=== PATIENT | male | born 1945 | race Hispanic/Latino ===

== ENCOUNTER 2019-08-07 05:02 | Emergency (ER) | payer MEDICARE ==
[~2019-08-07] VITALS: Ht 172.7 cm; Wt 83.0 kg
[~2019-08-07 05:02] MED LIST: AMLODIPINE10 MG PO; AUGMENTIN875TAB OR; FLORASTOR250 M1 PO; GLIMEPIRIDE4 MG PO; GLYBURIDE2.5 MG PO; HYDROCHLOROT25 MG PO; LEVAQUIN750 MG PO; LISINOPRIL2.5 MG PO; LOVASTATIN20 MG PO; MEDDOSEPAK PO; METFORMIN HCL500 M1 PO; METFORMIN1000 MG PO; METFORMIN500 MG PO; NYSTATIN100000 M1 PO; PRAVASTATIN20 MG PO; TESSALON200 MG PO
[2019-08-07 05:18] VITALS: BP 164/94
[2019-08-07 06:13] LABS: HEMATOCRIT 47.5 % (39.0-50.0); HEMOGLOBIN 15.7 g/dl (14.0-18.0); IMMATURE GRANULOCYTES 0.4 % (0.0-5.0); MEAN CELL VOLUME 87.6 fL CALC (80.0-100.0); MEAN CORPUSCULAR HGB CONC 33.1 g/L CALC (32.0-36.0); NEUT# 17.52 thou/uL (1.82-7.42); RED BLOOD COUNT 5.42 mill/uL (4.70-6.10); RED CELL DISTRI WIDTH 12.4 % (11.5-15.5)
[2019-08-07 06:19] LABS: URINE BILIRUBIN - DIPSTICK NEGATIVE (NEGATIVE); URINE BLOOD DIPSTICK TRACE-INTACT (NEGATIVE); URINE COLOR YELLOW; URINE GLUCOSE - DIPSTICK NEGATIVE (NEGATIVE); URINE KETONE NEGATIVE (NEGATIVE); URINE NITRITE - DIPSTICK NEGATIVE (Negative); URINE PH 8.5 (4.5-8.0); URINE PROTEIN - DIPSTICK 100 mg/dL (NEG-TRACE); URINE SPECIFIC GRAVITY 1.015; URINE UROBILINOGEN - DIPSTICK 0.2 E.U./dL (0.2)
[2019-08-07 06:19] LABS: ALBUMIN 4.3 g/dL (3.2-5.0); ALKALINE PHOSPHATASE 99 u/l (38-126); ANION GAP 13 (6-22 (CALC)); BUN 12 mg/dL (8-23); BUN/CREATININE RATIO 14 (12-20 (CALC)); CARBON DIOXIDE 30 mmol/l (22-30); CHLORIDE 97 mmol/l (95-108); CREATININE 0.9 mg/dL (0.7-1.3); GFR > 60 ML/MIN (>=60 (CALC)); GFR FOR AFR.AMER. > 60 ML/MIN (>=60 (CALC)); POTASSIUM 4.5 mmol/l (3.5-5.1); SGOT/AST 18 u/l (19-48); SODIUM 137 mmol/l (137-146); TOTAL PROTEIN 7.6 g/dL (6.3-8.2)
[2019-08-07 06:28] LABS: URINE EPITHELIAL CELLS FEW EPI/hpf (0-FEW); URINE LEUK ESTERASE NEGATIVE (NEGATIVE)
[2019-08-07 06:29] LABS: URINE BACTERIA FEW hpf; URINE MUCUS FEW hpf (NONE-FEW)
[2019-08-07 06:31] LABS: MYOGLOBIN 40 ng/mL (0 - 121)
[2019-08-07 06:36] LABS: AMYLASE 2069 u/l (30-110); BILIRUBIN, TOTAL 1.2 mg/dL (0.0-1.4)
[2019-08-07 09:25] LABS: LIPASE 22654 u/l (23-300)
[2019-08-07] MEDS ORDERED: NORVASC5 M1 PO (09:59)
[2019-08-07] MEDS ORDERED: ENTRESTO 49-511 TAB PO (10:00)
[2019-08-07] MEDS ORDERED: VENTOLIN HFA IN (10:01)
[2019-08-07] MEDS ORDERED: METOPROL TAR100 MG PO (10:02)
[2019-08-07] MEDS ORDERED: LORATADINE10 M1 PO (10:03)
[2019-08-07] MEDS ORDERED: ASPIRIN81 MG PO (10:03)
== END 2019-08-07 10:24 | disposition short-term general hospital (02) ==
LOC: ED 05:02
PROVIDERS: Emergency Medicine
DX: R10.13 Epigastric pain (principal); R16.0 Hepatomegaly, not elsewhere classified; K86.9 Disease of pancreas, unspecified; R91.8 Other nonspecific abnormal finding of lung field; D72.829 Elevated white blood cell count, unspecified; E11.9 Type 2 diabetes mellitus without complications; Z79.84 Long term (current) use of oral hypoglycemic drugs
CPT/HCPCS: Q9967; S0164

== ENCOUNTER 2024-10-05 01:03 | Inpatient (IN) | payer MEDICARE ==
[~2024-10-05] VITALS: Ht 172.7 cm; Wt 73.4 kg
[2024-10-05] VITALS (17 sets, daily range): BP systolic 99–165; BP diastolic 49–77
[~2024-10-05 01:03] MED LIST changes: +ASPIRIN81 MG PO; +ENTRESTO 49-511 TAB PO; +LORATADINE10 M1 PO; +METOPROL TAR100 MG PO; +NORVASC5 M1 PO; +VENTOLIN HFA IN
[2024-10-05] MEDS ORDERED: ALBUTEROL SULFATE 2.5 MG VIAL NEB ONE (01:25)
[2024-10-05] MEDS ORDERED: methylPREDNISolone SODIUM SUCC 125 MG/2 ML SDV IV ONE (01:25)
[2024-10-05 01:34] LABS: BASO% 0.4 % (0-3); EOS% 4.8 % (0-8); HEMATOCRIT 40.8 % (39.0-50.0); IMMATURE GRANULOCYTES 0.2 % (0.0-5.0); LYMPH% 22.2 % (15-41); MEAN CELL VOLUME 91.5 fL CALC (80.0-100.0); MEAN CORPUSCULAR HGB 29.1 pG CALC (26.0-32.0); MEAN CORPUSCULAR HGB CONC 31.9 g/dL CAL (32.0-36.0); MONO% 8.5 % (2-13); NEUT# 8.02 thou/uL (1.82-7.42); NEUT% 63.9 % (42-76); RED BLOOD COUNT 4.46 mill/uL (4.70-6.10); RED CELL DISTRI WIDTH 12.2 % (11.5-15.5)
[2024-10-05 01:44] LABS: ALKALINE PHOSPHATASE 87 u/l (38-126); ANION GAP 14 (6-22 (CALC)); BILIRUBIN, TOTAL 0.5 mg/dL (0.2-1.3); BUN 16 mg/dL (8-23); BUN/CREATININE RATIO 16 (12-20 (CALC)); CARBON DIOXIDE 29 mmol/l (22-30); CHLORIDE 98 mmol/l (95-108); ESTIMATED GFR 76 ML/MIN (>=90 (CALC)); POTASSIUM 4.3 mmol/l (3.5-5.1); SGOT/AST 27 u/l (19-48); SODIUM 136 mmol/l (137-146)
[2024-10-05 01:47] LABS: ALBUMIN 4.4 g/dL (3.2-5.0); TOTAL PROTEIN 7.8 g/dL (6.3-8.2)
[2024-10-05] MEDS ORDERED: cefTRIAXone SODIUM 2 GM in SODIUM CHLORIDE 0.9% 100 ML IV ONE (03:10)
[2024-10-05] MEDS ORDERED: AZITHROMYCIN 500 MG in SODIUM CHLORIDE 0.9% 250 ML IV ONE (03:10)
[2024-10-05] MEDS ORDERED: PRAVASTATIN SOD20 MG PO (04:19)
[2024-10-05] MEDS ORDERED: DIGOXIN0.125 MG PO (04:20)
[2024-10-05] MEDS ORDERED: LASIX 40 MG TAB40 MG PO (04:23)
[2024-10-05] MEDS ORDERED: METFORMIN HCL1000 MG PO (04:23)
[2024-10-05] MEDS ORDERED: GLIMEPIRIDE2 MG PO (04:24)
[2024-10-05] MEDS ORDERED: ALLERGY RE50 MCG/ACT (04:25)
[2024-10-05] MEDS ORDERED: SODIUM CHLORIDE 0.9% 500 ML IV ONE (04:45)
[2024-10-05] MEDS ORDERED: AZITHROMYCIN 500 MG/VIAL SDV IV ONE (04:45)
[2024-10-05] MEDS ORDERED: SODIUM CHLORIDE 0.9% 250 ML IV ONE (04:51)
[2024-10-05] MEDS ORDERED: ACETAMINOPHEN 325 MG/TAB PO PRN (07:35)
[2024-10-05] MEDS ORDERED: DEXTROSE 250 ML IV PRN (07:35)
[2024-10-05] MEDS ORDERED: IPRATROPIUM-Albuterol 0.5MG-2.5MG/3 ML NEB PRN (07:35)
[2024-10-05] MEDS ORDERED: FUROSEMIDE 40 MG/4 ML SDV IV SCH (09:00)
[2024-10-05] MEDS ORDERED: SODIUM CHLORIDE 0.9% 1,000 ML IV PRN (09:25)
[2024-10-05] MEDS ORDERED: INSULIN LISPRO 100 UNITS/ML ML SC SCH (11:00)
[2024-10-06] VITALS (7 sets, daily range): BP systolic 139–155; BP diastolic 52–71
[2024-10-06] MEDS ORDERED: AZITHROMYCIN 500 MG in SODIUM CHLORIDE 0.9% 500 ML IV SCH (05:00)
[2024-10-06] MEDS ORDERED: AZITHROMYCIN 500 MG in SODIUM CHLORIDE 0.9% 250 ML IV SCH (05:00)
[2024-10-06 05:25] LABS: BASO% 0.1 % (0-3); HEMATOCRIT 39.8 % (39.0-50.0); HEMOGLOBIN 12.9 g/dl (14.0-18.0); IMMATURE GRANULOCYTES 0.4 % (0.0-5.0); LYMPH% 10.8 % (15-41); MEAN CELL VOLUME 91.1 fL CALC (80.0-100.0); MEAN CORPUSCULAR HGB 29.5 pG CALC (26.0-32.0); MEAN CORPUSCULAR HGB CONC 32.4 g/dL CAL (32.0-36.0); MONO% 6.7 % (2-13); NEUT# 16.33 thou/uL (1.82-7.42); RED BLOOD COUNT 4.37 mill/uL (4.70-6.10); RED CELL DISTRI WIDTH 12.1 % (11.5-15.5)
[2024-10-06 05:46] LABS: ALBUMIN 3.6 g/dL (3.2-5.0); BILIRUBIN, TOTAL 0.6 mg/dL (0.2-1.3); MAGNESIUM 1.9 mg/dL (1.6-2.3); POTASSIUM 4.4 mmol/l (3.5-5.1); TOTAL PROTEIN 6.5 g/dL (6.3-8.2)
[2024-10-06] MEDS ORDERED: PIPERACILLIN Sodium-Tazobactam 3.375 GM in SODIUM CHLORIDE 0.9% 100 ML IV SCH (18:00)
[2024-10-07] VITALS (11 sets, daily range): BP systolic 118–185; BP diastolic 59–79
[2024-10-07 03:46] LABS: BASO% 0.3 % (0-3); EOS% 1.1 % (0-8); HEMATOCRIT 35.6 % (39.0-50.0); HEMOGLOBIN 11.4 g/dl (14.0-18.0); IMMATURE GRANULOCYTES 0.9 % (0.0-5.0); LYMPH% 17.6 % (15-41); MEAN CELL VOLUME 92.5 fL CALC (80.0-100.0); MEAN CORPUSCULAR HGB 29.6 pG CALC (26.0-32.0); MONO% 8.5 % (2-13); NEUT# 8.92 thou/uL (1.82-7.42); NEUT% 71.6 % (42-76); RED BLOOD COUNT 3.85 mill/uL (4.70-6.10); RED CELL DISTRI WIDTH 12.4 % (11.5-15.5)
[2024-10-07 03:55] LABS: ALBUMIN 3.3 g/dL (3.2-5.0); BILIRUBIN, TOTAL 0.6 mg/dL (0.2-1.3); MAGNESIUM 1.7 mg/dL (1.6-2.3); TOTAL PROTEIN 6.2 g/dL (6.3-8.2)
[2024-10-07 03:58] LABS: POTASSIUM 3.5 mmol/l (3.5-5.1)
[2024-10-07] MEDS ORDERED: guaiFENesin-CODEINE 200-20 MG/10 ML UDC PO PRN (19:45)
[2024-10-08 03:18] VITALS: BP 129/54
[2024-10-08 05:16] LABS: BASO% 0.4 % (0-3); EOS% 2.6 % (0-8); HEMATOCRIT 34.1 % (39.0-50.0); HEMOGLOBIN 11.1 g/dl (14.0-18.0); IMMATURE GRANULOCYTES 0.2 % (0.0-5.0); LYMPH% 18.9 % (15-41); MEAN CELL VOLUME 91.7 fL CALC (80.0-100.0); MEAN CORPUSCULAR HGB 29.8 pG CALC (26.0-32.0); MEAN CORPUSCULAR HGB CONC 32.6 g/dL CAL (32.0-36.0); MONO% 9.3 % (2-13); NEUT# 7.73 thou/uL (1.82-7.42); NEUT% 68.6 % (42-76); RED BLOOD COUNT 3.72 mill/uL (4.70-6.10); RED CELL DISTRI WIDTH 12.3 % (11.5-15.5)
[2024-10-08 05:20] LABS: ALBUMIN 2.9 g/dL (3.2-5.0); BILIRUBIN, TOTAL 0.7 mg/dL (0.2-1.3); CREATININE 0.9 mg/dL (0.7-1.3); MAGNESIUM 1.5 mg/dL (1.6-2.3); POTASSIUM 3.5 mmol/l (3.5-5.1); TOTAL PROTEIN 5.5 g/dL (6.3-8.2)
[2024-10-08 07:32] VITALS: BP 134/70
[2024-10-08] MEDS ORDERED: MAGNESIUM SULFATE HEPTAHYDRATE 50 ML IV SCH (09:00)
[2024-10-08] MEDS ORDERED: LEVOFLOXACIN500MG PO (09:40)
[2024-10-08] MEDS ORDERED: ROBITUSSIN AC10 ML PO (09:41)
[2024-10-08 11:42] VITALS: BP 135/65
== END 2024-10-08 13:27 | disposition home or self-care (01) | DRG 194 ==
LOC: ED 01:03 → ED-I 01:12 → ED 04:03 → ED-I 04:04 → MS2 16:30
PROVIDERS: Family Medicine; Nurse Practitioner Family; ADMIT Internal Medicine; ATTEND Internal Medicine
DX: J18.9 Pneumonia, unspecified organism (principal); J44.0 Chronic obstructive pulmonary disease with (acute) lower respiratory infection; J93.9 Pneumothorax, unspecified; I10 Essential (primary) hypertension; E11.9 Type 2 diabetes mellitus without complications; E78.5 Hyperlipidemia, unspecified; Z85.46 Personal history of malignant neoplasm of prostate; Z95.0 Presence of cardiac pacemaker; Z87.891 Personal history of nicotine dependence; Z79.84 Long term (current) use of oral hypoglycemic drugs; Z20.822 Contact with and (suspected) exposure to COVID-19
CPT/HCPCS: J0456; J0696; J1815; J1940; J2543; J3475; Q9967